=== PATIENT | male | born 1965 | race Caucasian/White ===

== ENCOUNTER 2018-05-08 18:07 | Emergency (ER) | payer MEDICAID ==
[~2018-05-08] VITALS: Ht 167.6 cm; Wt 98.4 kg
[2018-05-08 18:07] VITALS: BP 133/71
[2018-05-08] MEDS ORDERED: KETOROLAC TROMETHAMINE INJ 60 MG/2 ML VIAL IM ONE ×2 (21:00→21:05)
== END 2018-05-08 22:28 | disposition home or self-care (01) ==
LOC: ER 18:14
DX: M54.42 Lumbago with sciatica, left side (principal); E11.9 Type 2 diabetes mellitus without complications; Z79.4 Long term (current) use of insulin
CPT/HCPCS: A4606; J1885; Z7610

== ENCOUNTER 2018-05-10 18:15 | Emergency (ER) | payer MEDICAID ==
[~2018-05-10] VITALS: Ht 167.6 cm; Wt 102.1 kg
[2018-05-10 18:26] VITALS: BP 135/77
--- NOTE | 2018-05-10 18:40 | NUR ---
PT BIB SELF C/O OF BACK PAIN 01/20, PT IS AOX4, NOT IN RESPIRATORY DISTRESS, V/S STABLE, KEPT RESTED AND COMFORTABLE.
--- NOTE | 2018-05-10 18:50 | NUR ---
DR. MILES AT BEDSIDE FOR EVAL.
[2018-05-10] MEDS ORDERED: KETOROLAC TROMETHAMINE INJ 60 MG/2 ML VIAL IM ONE (19:00)
[2018-05-10] MEDS ORDERED: oxyCODONE/APAP (5/325 MG) 1 UDTAB TABLET PO ONE (19:00)
[2018-05-10] MEDS ORDERED: ONDANSETRON 4 MG TAB.RAPDIS SL ONE (19:00)
[2018-05-10] MEDS ORDERED: KETOROLAC TROMETHAMINE INJ 30 MG/ML VIAL ONE (19:05)
[2018-05-10] MEDS ORDERED: oxyCODONE/APAP (5/325 MG) 1 UDTAB TABLET ONE (19:06)
[2018-05-10] MEDS ORDERED: ONDANSETRON 4 MG TAB.RAPDIS ONE (19:06)
--- NOTE | 2018-05-10 19:31 | NUR ---
ENDORSED TO HECTOR AGUILA FOR CHRIS, V/S STABLE, NOT IN RESPIRATORY DISTRESS.
== END 2018-05-10 19:45 | disposition home or self-care (01) ==
LOC: ER 18:19
DX: M54.42 Lumbago with sciatica, left side (principal); M54.16 Radiculopathy, lumbar region; E11.9 Type 2 diabetes mellitus without complications; E66.9 Obesity, unspecified
CPT/HCPCS: 96372; 99283; A4606; J1885; Q0162; Z7610

== ENCOUNTER 2018-05-12 18:20 | Emergency (ER) | payer MEDICAID ==
[~2018-05-12] VITALS: Ht 167.6 cm; Wt 95.3 kg
[2018-05-12 18:30] VITALS: BP 131/77
[2018-05-12] MEDS ORDERED: KETOROLAC TROMETHAMINE 15 MG/ML VIAL ONE (19:23)
[2018-05-12] MEDS ORDERED: KETOROLAC TROMETHAMINE INJ 30 MG/ML VIAL IM ONE (19:30)
== END 2018-05-12 20:41 | disposition home or self-care (01) ==
LOC: ER 18:21
DX: M54.42 Lumbago with sciatica, left side (principal); E11.9 Type 2 diabetes mellitus without complications; Z79.4 Long term (current) use of insulin; Z60.2 Problems related to living alone
CPT/HCPCS: 72110-TC; A4606; J1885; Z7610

== ENCOUNTER 2018-10-05 20:09 | Emergency (ER) | payer SELFPAY ==
[~2018-10-05] VITALS: Ht 157.5 cm; Wt 95.3 kg
[2018-10-05 20:22] VITALS: BP 130/78
[2018-10-05] MEDS ORDERED: IBUPROFEN 400 MG TABLET ONE (20:51)
[2018-10-05] MEDS ORDERED: ACETAMINOPHEN ES 500 MG TABLET ONE (20:51)
[2018-10-05] MEDS ORDERED: IBUPROFEN 400 MG TABLET PO ONE (21:00)
[2018-10-05] MEDS ORDERED: ACETAMINOPHEN ES 500 MG TABLET PO ONE (21:00)
== END 2018-10-05 20:55 | disposition home or self-care (01) ==
LOC: ER 20:09
DX: T14.8XXA Other injury of unspecified body region, initial encounter (principal); M54.10 Radiculopathy, site unspecified; E11.9 Type 2 diabetes mellitus without complications; Z60.2 Problems related to living alone; V43.52XA Car driver injured in collision with other type car in traffic accident, initial encounter; Y93.89 Activity, other specified; Y92.413 State road as the place of occurrence of the external cause; Y99.8 Other external cause status

== ENCOUNTER 2019-03-15 15:22 | Emergency (ER) | payer MEDICAID, OTHER ==
[~2019-03-15] VITALS: Ht 165.1 cm; Wt 95.3 kg
--- NOTE | 2019-03-15 15:30 | NUR ---
PT CAME FROM HOME TO ER WITH C/O OF SORE THROAT 2x DAYS. AIRWAY NOT OBSTRUCTED. AAOX4. NO SOB. NAD. NO FEVER. AWAITING MD FOR FURTHER EVAL. WILL CONTINUE TO MONITOR PATIENT.
[2019-03-15] MEDS ORDERED: KETOROLAC TROMETHAMINE INJ 30 MG/ML VIAL IV ONE (16:30)
[2019-03-15] MEDS ORDERED: predniSONE 50 MG TABLET PO ONE (16:30)
[2019-03-15] MEDS ORDERED: KETOROLAC TROMETHAMINE INJ 60 MG/2 ML VIAL IM ONE ×2 (17:00→17:09)
[2019-03-15] MEDS ORDERED: predniSONE 20 MG TABLET ONE (17:09)
[2019-03-15] MEDS ORDERED: predniSONE 10 MG TABLET ONE (17:09)
--- NOTE | 2019-03-15 17:59 | NUR ---
DPatient discharged to home in stable condition. Written and verbal after care instructions given. Patient verbalizes understanding of instruction.
[2019-03-15 18:00] VITALS: BP 112/67
== END 2019-03-15 18:01 | disposition home or self-care (01) ==
LOC: ER 15:25
DX: J02.9 Acute pharyngitis, unspecified (principal); E11.9 Type 2 diabetes mellitus without complications; Z60.2 Problems related to living alone
CPT/HCPCS: 70360; 96372; 99283; J1885; J7512 ×2

== ENCOUNTER 2019-03-17 15:41 | Emergency (ER) | payer OTHER ==
[~2019-03-17] VITALS: Ht 157.5 cm; Wt 88.5 kg
[2019-03-17 16:07] VITALS: BP 133/73
[2019-03-17] MEDS ORDERED: AMOX/CLAVULANATE 875 MG TABLET PO ONE (17:30)
[2019-03-17] MEDS ORDERED: HYDROCODONE/APAP 5/325MG 1 EACH TABLET PO ONE (17:30)
[2019-03-17 17:44] LABS: BASOPHILS % (AUTO) 0.3 % (0.0-2.0); EOSINOPHILS % (AUTO) 0.2 % (0.0-6.0); HEMATOCRIT 49 % (39-51); HEMOGLOBIN 16.9 g/dL (13.5-17.5); LYMPHOCYTES # (AUTO) 1.7 /CMM (0.8-4.8); LYMPHOCYTES % (AUTO) 11.5 % (20.0-44.0); MEAN CORPUSCULAR HGB CONC 34 g/dl (31.0-36.0); MEAN CORPUSCULAR VOLUME 94 fL (80-96); MONOCYTES # (AUTO) 1.1 /CMM (0.1-1.30); MONOCYTES % (AUTO) 7.7 % (2.0-12.0); NEUTROPHILS # (AUTO) 11.9 /CMM (1.8-8.9); NEUTROPHILS % (AUTO) 80.3 % (43.0-81.0); PLATELET COUNT (AUTO) 224 /CMM (150-450); RED BLOOD CELL COUNT(AUTO) 5.28 MIL/uL (4.5-6.0); WHITE BLOOD COUNT (AUTO) 14.8 K/uL (4.3-11.0)
[2019-03-17] MEDS ORDERED: HYDROCODONE/APAP 5/325MG 1 EACH TABLET ONE (17:46)
[2019-03-17] MEDS ORDERED: AMOX/CLAVULANATE 875 MG TABLET ONE (17:46)
[2019-03-17] MEDS ORDERED: IV NS 0.9% 250 ML IV ONE (17:50)
[2019-03-17] MEDS ORDERED: IOHEXOL-300 100 ML VIAL IV ONE (17:50)
[2019-03-17] MEDS ORDERED: CT SWABBABLE VALVE TRANS SET 1 EA INFUS.SET MC ONE (17:50)
--- NOTE | 2019-03-17 17:50 | NUR ---
MEDICATED PER TONY CAMPBELL'S ORDER, PT JENNIFER WELL.
[2019-03-17 17:52] LABS: CALCIUM, SERUM 8.5 mg/dL (8.5-10.1); POTASSIUM 3.9 mmol/L (3.5-5.1)
[2019-03-17] MEDS ORDERED: CEFTRIAXONE 1GM BAG (ER ONLY) 1 GM/50 ML PIGGYBACK IV ONE (19:30)
[2019-03-17] MEDS ORDERED: IBUPROFEN 600 MG TABLET PO ONE ×2 (19:30→19:32)
[2019-03-17] MEDS ORDERED: CEFTRIAXONE 1GM BAG (ER ONLY) 50 ML IV ONE (19:32)
[2019-03-17] MEDS ORDERED: MORPHINE SULFATE INJ 4 MG/ML DISP.SYRIN ONE (19:39)
[2019-03-17] MEDS ORDERED: predniSONE 20 MG TABLET ONE (19:53)
[2019-03-17] MEDS ORDERED: predniSONE 10 MG TABLET ONE (19:53)
[2019-03-17] MEDS ORDERED: predniSONE 50 MG TABLET PO ONE (20:00)
[2019-03-17] MEDS ORDERED: MORPHINE SULFATE INJ 2 MG/ML DISP.SYRIN IV ONE (20:00)
[2019-03-17] MEDS ORDERED: IBUPROFEN 400 MG TABLET PO ONE (20:00)
--- NOTE | 2019-03-17 20:31 | NUR ---
Patient discharged to home in stable condition. Written and verbal after care instructions given. Patient verbalizes understanding of instruction. IV removed. Catheter intact and site benign. Pressure and 4x4 applied to site. No bleeding noted.
== END 2019-03-17 20:33 | disposition home or self-care (01) ==
LOC: ER 15:47
DX: J36 Peritonsillar abscess (principal); E11.9 Type 2 diabetes mellitus without complications
CPT/HCPCS: 36415; 42700; 70491; 80048; 85025; 96365; 96375; 99284; J0696; J2270; J7050; J7512 ×2; Q9967

== ENCOUNTER 2019-03-19 09:05 | Emergency (ER) | payer MEDICAID, OTHER ==
[~2019-03-19] VITALS: Ht 160 cm; Wt 88.5 kg
--- NOTE | 2019-03-19 09:25 | NUR ---
PT CAME INTO THE ED C/O WORSENING SORE THROAT, DIFFICULTY SWALLOWING X 6 DAYS. PT AAOX4, VSS, NO ACUTE DISTRESS NOTED, UNLABORED AND EVEN BREATHING. PT CONNECTED TO THE MONITOR, WILL CONTINUE TO MONITOR.
--- NOTE | 2019-03-19 10:31 | NUR ---
CAPITATED TO [facility] VERIFIED ADMITTING TO CALL [facility]
--- NOTE | 2019-03-19 10:32 | NUR ---
CALLED [facility] ADMITTING [phone] TO FAX FACE SHEET TO [phone] [facility].
--- NOTE | 2019-03-19 10:52 | NUR ---
FAXED FACESHEET AND CLINICALS TO [facility] [phone]
[2019-03-19] MEDS ORDERED: MORPHINE SULFATE INJ 2 MG/ML DISP.SYRIN ONE ×2 (11:13→14:01)
[2019-03-19] MEDS ORDERED: MORPHINE SULFATE INJ 2 MG/ML DISP.SYRIN IV ONE ×2 (11:30→14:00)
--- NOTE | 2019-03-19 13:06 | NUR ---
UPDATE, FOLLOWED UP WITH ADMITTING AND THEY SAID THAT DR. DERAS IS CONFIRMING THAT THERE IS AN ENT AT [facility] SO THEY CAN GET A BED.
--- NOTE | 2019-03-19 13:51 | NUR ---
CALLED RECEIVING SUPERVISOR FOR UPDATE TO SPEAK WITH DR MORA
[2019-03-19 13:53] VITALS: BP 131/77
[2019-03-19] MEDS ORDERED: PIPERACILLIN /TAZOBACTAM 3.375 G in IV D5W 50 ML IV ONE (14:00)
[2019-03-19] MEDS ORDERED: PIPERACILLIN /TAZOBACTAM 3.375 G VIAL IV ONE (14:01)
--- NOTE | 2019-03-19 15:53 | NUR ---
PER ESTHER, TRANSPORTATION MODELER AT [facility], LOOKING FOR MEDR BED WILL CALL BACK WITH DETAILS
--- NOTE | 2019-03-19 17:03 | NUR ---
PER ESTHER AT [facility] ADMITTING SHE WILL CONTACT BUDDY([facility] CM) TO DISCUSS ADMISSION TO [facility]. WILL CALL BACK WITH ROOM UPDATE
--- NOTE | 2019-03-19 17:47 | NUR ---
Patient does not wish to proceed with medical care recommended by Dr. Solares. Patient given information related to possible complications, up to and including , which could occur as a result of leaving the hospital at this time. Patient verbalizes understanding of risks involved due to leaving against medical advice. Patient has signed AMA form.
== END 2019-03-19 17:47 | disposition left against medical advice (07) ==
LOC: ER 09:05
DX: J36 Peritonsillar abscess (principal)
CPT/HCPCS: 96365; 96375; 96376; 99283; J2270 ×2; J2543 ×2; J7060

== ENCOUNTER 2021-02-08 04:28 | Emergency (ER) | payer OTHER ==
[~2021-02-08] VITALS: Ht 157.5 cm; Wt 88.5 kg
--- NOTE | 2021-02-08 05:42 | NUR ---
PT CAME IN FOR ABDOMINAL PAIN X 1 DAY 01/20. AT BED SIDE
[2021-02-08 05:59] LABS: BASOPHILS # (AUTO) 0.1 K/uL (0.0-0.2); BASOPHILS % (AUTO) 0.5 % (0.0-2.0); EOSINOPHILS % (AUTO) 1.3 % (0.0-6.0); HEMATOCRIT 48 % (39-51); LYMPHOCYTES # (AUTO) 2.1 K/uL (0.8-4.8); LYMPHOCYTES % (AUTO) 17.9 % (20.0-44.0); MEAN CORPUSCULAR HGB CONC 34 g/dl (31.0-36.0); MEAN CORPUSCULAR VOLUME 93 fL (80-96); MONOCYTES # (AUTO) 0.7 K/uL (0.1-1.30); MONOCYTES % (AUTO) 6.3 % (2.0-12.0); NEUTROPHILS # (AUTO) 8.5 K/uL (1.8-8.9); PLATELET COUNT (AUTO) 221 K/uL (150-450); RED BLOOD CELL COUNT(AUTO) 5.13 MIL/uL (4.5-6.0); WHITE BLOOD COUNT (AUTO) 11.5 K/uL (4.3-11.0)
[2021-02-08] MEDS ORDERED: MORPHINE SULFATE INJ 2 MG/ML DISP.SYRIN IV ONE (06:00)
[2021-02-08] MEDS ORDERED: MORPHINE SULFATE INJ 4 MG/ML DISP.SYRIN ONE (06:11)
[2021-02-08 06:26] LABS: ALANINE AMINOTRANSFERASE 24 U/L (12-78); ALBUMIN 3.4 g/dL (3.4-5.0); ALKALINE PHOSPHATASE 105 U/L (46-116); ASPARTATE AMINOTRANSFERASE 27 U/L (15-37); BILIRUBIN,DIRECT 0.1 mg/dL (0.0-0.2); BILIRUBIN,TOTAL 0.7 mg/dL (0.2-1.0); CALCIUM, SERUM 8.8 mg/dL (8.5-10.1); CARBON DIOXIDE 23 mmol/L (21-32); CHLORIDE 103 mmol/L (98-107); LIPASE 71 U/L (73-393); POTASSIUM 4.7 mmol/L (3.5-5.1); SODIUM SERUM 137 mmol/L (136-145); TOTAL PROTEIN, SERUM 7.3 g/dL (6.4-8.2)
[2021-02-08 06:31] LABS: GLUCOSE 393 mg/dL (74-106)
--- NOTE | 2021-02-08 06:31 | NUR ---
GLUCOSE [id number]
[2021-02-08 06:39] LABS: UREA NITROGEN, BLOOD 19 mg/dL (7-18)
--- NOTE | 2021-02-08 06:43 | NUR ---
PT OUT TO ULTRASOUND
--- NOTE | 2021-02-08 06:51 | NUR ---
PATIENT BACK FROM ULTRASOUND
[2021-02-08] MEDS ORDERED: LIDOCAINE VISCOUS 2% UD 15 ML UDC MM ONE (07:30)
[2021-02-08] MEDS ORDERED: FAMOTIDINE/PF INJ 20 MG/2 ML VIAL IV ONE ×2 (07:30→07:35)
[2021-02-08] MEDS ORDERED: MAG HYDROX/AL HYDROX/SIMETH 30 ML UDC PO ONE (07:30)
[2021-02-08] MEDS ORDERED: MAG HYDROX/AL HYDROX/SIMETH 30 ML UDC ONE (07:35)
[2021-02-08] MEDS ORDERED: LIDOCAINE VISCOUS 2% UD 15 ML UDC ONE (07:35)
[2021-02-08 07:43] VITALS: BP 106/66
--- NOTE | 2021-02-08 07:43 | NUR ---
Patient discharged to home in stable condition. Written and verbal after care instructions given. Patient verbalizes understanding of instruction.IV removed. Catheter intact and site benign. Pressure and 4x4 applied to site. No bleeding noted.
== END 2021-02-08 07:43 | disposition home or self-care (01) ==
LOC: ER 04:28
DX: K29.70 Gastritis, unspecified, without bleeding (principal); E11.9 Type 2 diabetes mellitus without complications
CPT/HCPCS: 36415; 74176; 76705; 80048; 80076; 83690; 84484; 85025; 96374; 96375; 99291; J2270; J3490